=== PATIENT | male | born 1975 | race Caucasian/White ===

== ENCOUNTER 2020-10-31 07:14 | Emergency (ER) | payer SELFPAY ==
--- NOTE | 2020-10-31 07:20 | NUR ---
I went to triage the pt and spoke with him in the ER waiting room. When I asked him what we can do for him today he stated " I just want some food and some socks ". I asked him he would like to be seen in the ER and see a doctor and the pt said no. Pt was given food and juice. No s/s of distress noted. Pt was seen sitting in a chair in the ER waiting room and watching TV.
== END 2020-10-31 07:27 | disposition left against medical advice (07) ==
LOC: ER 07:14
DX: Z53.21 Procedure and treatment not carried out due to patient leaving prior to being seen by health care provider (principal)